=== PATIENT | female | born 1985 | race African-American/Black ===

== ENCOUNTER 2017-04-21 10:41 | Emergency (ER) | payer OTHER | END 2017-04-21 13:22 | disposition home or self-care (01) | LOC: ER 10:41 | DX: N83.292 Other ovarian cyst, left side (principal); N83.291 Other ovarian cyst, right side; N93.8 Other specified abnormal uterine and vaginal bleeding; F17.210 Nicotine dependence, cigarettes, uncomplicated; F10.99 Alcohol use, unspecified with unspecified alcohol-induced disorder; Z88.8 Allergy status to other drugs, medicaments and biological substances; Z88.5 Allergy status to narcotic agent; Z98.890 Other specified postprocedural states ==

== ENCOUNTER 2018-08-13 02:58 | Emergency (ER) | payer OTHER ==
[~2018-08-13] VITALS: Ht 165.1 cm; Wt 72.6 kg
[~2018-08-13 02:58] MED LIST: ACTICIN 5% CREA60 G1 TOP; ADDERALL 10 MG10 MG; ALBUTEROL INHAL17 GM IH; ALPRAZOLAM 0.0.25 M1; ASPIRIN81 M2 PO; AZITHROMYCIN 2250 MG PO; BENADRYL25 MG; CELEXA40 MG; CIPROFLOXACIN500 M1 PO; CLARITIN10 MG PO; CLEOCIN HCL150 MG PO; COLD; DELSYM30 MG/5 M1; DEPO-PROVERA; DESYREL50 MG PO; DEXEDRINE10 MG PO; DOXYCYCLINE 10100 MG PO; EXPECTORANT200 M1 PO; HIBICLENS120 ML TP; IBUPROFEN 400400 M2 PO; IBUPROFEN 600600 M1 PO; IBUPROFEN 800800 M1 PO; KEFLEX500 MG PO; MOBIC15 MG PO; MUPIROCIN22 GM TOP; NAPROSYN500 MG PO; ONDANSETRON HCL4 M2 PO; PERCOCET 5-3251 EACH PO; PREDNISONE 20 M20 M1 PO; PRIMATENE MIST; TEGRETOL XR100 MG; TESSALON PERLE100 MG PO; TRAMADOL 50 MG50 MG PO; TRINATE TABLET1 TAB; ULTRAM 50MG TAB50 MG PO; VENTOLIN HFA 1818 GM INH; VENTOLIN HFA INH8 GM IH; VISTARIL 25 MG25 M1 PO; XANAX 0.5 MG0.5 M1; XANAX XR1 MG PO; ZANTAC 150MG T150 M1 PO; ZOFRAN ODT4 MG PO; ZOFRAN4 MG PO; ZPAK PO; ZYPREXA2.5 MG; [UNRECOGNIZED DRUG - OTHER]; [UNRECOGNIZED DRUG - OTHER] PO
[2018-08-13] MEDS ORDERED: ACETAMINOPHEN-1 EAC1 PO (05:13)
[2018-08-13] MEDS ORDERED: PREDNISONE 20 M20 MG PO (05:13)
[2018-08-13] MEDS ORDERED: AZITHROMYCIN 2250 MG PO (05:13)
[2018-08-13 05:36] VITALS: BP 109/61
== END 2018-08-13 05:39 | disposition home or self-care (01) ==
LOC: ER 02:58
DX: J20.9 Acute bronchitis, unspecified (principal); Z90.49 Acquired absence of other specified parts of digestive tract; F17.210 Nicotine dependence, cigarettes, uncomplicated; Z88.5 Allergy status to narcotic agent; Z88.8 Allergy status to other drugs, medicaments and biological substances

== ENCOUNTER 2018-10-26 12:40 | Emergency (ER) | payer OTHER ==
[~2018-10-26] VITALS: Ht 165.1 cm; Wt 71.7 kg
[~2018-10-26 12:40] MED LIST changes: +ACETAMINOPHEN-1 EAC1 PO; +PREDNISONE 20 M20 MG PO
[2018-10-26] MEDS ORDERED: ZYRTEC10 M5 PO (13:02)
[2018-10-26] MEDS ORDERED: GUAIFEN-CODEINE10 ML PO (14:48)
[2018-10-26] MEDS ORDERED: VENTOLIN HFA 1818 GM INH (14:48)
[2018-10-26 15:20] VITALS: BP 107/56
== END 2018-10-26 15:21 | disposition home or self-care (01) ==
LOC: ER 12:40
DX: J20.9 Acute bronchitis, unspecified (principal); F17.210 Nicotine dependence, cigarettes, uncomplicated; Z90.49 Acquired absence of other specified parts of digestive tract; Z88.5 Allergy status to narcotic agent; Z88.8 Allergy status to other drugs, medicaments and biological substances